=== PATIENT | female | born 1930 | race Caucasian/White ===

== ENCOUNTER → 2016-09-17 | Outpatient (CLI) | payer BC ==
[~2016-09-17] MED LIST: B-COTAB18 PO; CALC0.2510 PO; CALC0.5C PO; CHOL100010 PO; CHOL100027 PO; CINN1CAP2 PO; CYAN100020 PO; INSDGI SC; INSDGIPEN SC; INSU1INJ23 SC; INSU1INJ23 SQ; LEVE250T PO; LEVE500T13 PO; LEVO100T7 PO; LEVO125T5 PO; LEVO1TAB35 PO; NVLGI SC; NVLGIPEN SQ; OMEG10007 PO; PANT40TA PO; PRAV20TA PO; PRAV80TA2 PO; VITA1TAB4 PO; VITACAP PO
[2016-09-18 08:06] LABS: ESTIMATED AVERAGE GLUCOSE 174 mg/dl; HA1C FLAG Normal (Normal)
== END | disposition home or self-care (01) ==
LOC: C.LAB1850 15:40
PROVIDERS: ATTEND Internal Medicine Endocrinology, Diabetes & Metabolism
DX: M81.0 Age-related osteoporosis without current pathological fracture (principal); Z86.39 Personal history of other endocrine, nutritional and metabolic disease; E10.9 Type 1 diabetes mellitus without complications

== ENCOUNTER → 2016-09-21 | Outpatient (CLI) | payer BC | END | disposition home or self-care (01) | LOC: C.LAB1850 11:23 | PROVIDERS: ATTEND Internal Medicine Endocrinology, Diabetes & Metabolism | DX: Z86.39 Personal history of other endocrine, nutritional and metabolic disease (principal) ==

== ENCOUNTER → 2017-03-19 | Outpatient (CLI) | payer BC ==
[~2017-03-19] MED LIST changes: -B-COTAB18 PO; -CALC0.2510 PO; -CALC0.5C PO; +CALC0.5C17 PO; -CHOL100027 PO; -INSDGIPEN SC; -INSU1INJ23 SQ; -LEVE500T13 PO; -LEVO125T5 PO; -LEVO1TAB35 PO; -NVLGIPEN SQ; -PRAV80TA2 PO; -VITACAP PO
--- NOTE | 2017-03-19 15:20 | MAMMOGRAPHY REPORT ---
BILATERAL DIGITAL SCREENING MAMMOGRAM WITH CAD: 03/19/2017 CLINICAL HISTORY: Routine screening. Patient has no complaints. TECHNIQUE: Bilateral CC and MLO views were obtained. Current study was also evaluated with a Compute r Aided Detection (CAD) system. COMPARISON: Comparison is made to exams dated: 04/02/2016 ultrasound, 03/16/2016 mammogram, 03/14/20 15 mammogram, 03/31/2014 mammogram, 03/31/2014 ultrasound, and 03/11/2014 mammogram - [facility]. BREAST COMPOSITION: There are scattered areas of fibroglandular density in both breasts. FINDINGS: There is a dominant circumscribed 2 cm mass in the right upper outer quadrant, which was pr eviously documented to represent a simple cyst on ultrasound. There are a few benign rim calcificati ons bilaterally. Moderate to severe vascular calcification in the breasts. No suspicious mass, arch itectural distortion or cluster of suspicious microcalcifications is seen. IMPRESSION: ACR BI-RADS CATEGORY 1: NEGATIVE There is no mammographic evidence of malignancy. A 1 year screening mammogram is recommended. The pa tient will receive written notification of the results. Approximately 10% of breast cancers are not detected with mammography. A negative mammographic report should not delay biopsy if a clinically suggestive mass is present. Rut Marx M.D. ay/:03/19/2017 12:24:00 Saxophone Player: Lata Bell, [facility] letter sent: Normal 1/2 BI-RADS Code: ACR BI-RADS Category 1: Negative
== END | disposition home or self-care (01) ==
LOC: C.MAMM 10:33
PROVIDERS: ATTEND Internal Medicine
DX: Z12.31 Encounter for screening mammogram for malignant neoplasm of breast (principal)

== ENCOUNTER 2017-03-28 22:14 | Inpatient (IN) | payer BC, OTHER ==
[~2017-03-28] VITALS: Ht 152.4 cm; Wt 59.5 kg
[~2017-03-28 22:14] MED LIST changes: +CALC0.5C PO; -CALC0.5C17 PO
[2017-03-28] MEDS ORDERED: ALBUT/IPRATROP 3MG/0.5MG NEB 3 ML VIAL INH STA (22:51)
[2017-03-28] MEDS ORDERED: CALC0.2510 PO (23:22)
[2017-03-28] MEDS ORDERED: INSU1INJ23 SQ (23:23)
[2017-03-28] MEDS ORDERED: INSDGIPEN SC (23:23)
[2017-03-28] MEDS ORDERED: LEVE500T13 PO (23:24)
[2017-03-28] MEDS ORDERED: LEVO125T5 PO (23:24)
[2017-03-28] MEDS ORDERED: PRAV80TA2 PO (23:26)
[2017-03-28] MEDS ORDERED: NVLGIPEN SQ (23:29)
[2017-03-28] MEDS ORDERED: CHOL100027 PO (23:30)
[2017-03-28] MEDS ORDERED: B-COTAB18 PO (23:30)
[2017-03-28] MEDS ORDERED: VITACAP PO (23:30)
[2017-03-28 23:45] LABS: BASO % 0.2 %; BASO ABS # 0.02 K/uL (0-0.2); COMPLETE YES; EOS % 2.2 %; IG% 0.2 %; LYMPH % 14.7 %; LYMPH ABS # 1.28 K/uL (1.2-3.4); MEAN CELL VOLUME 91.3 fL (80-100); MEAN CORPUSCULAR HEMOGLOBIN 30.5 pg (25-34); MEAN CORPUSCULAR HGB CONC 33.4 g/dl (32-36); MEAN PLATELET VOLUME 9.3 fL (7.4-10.4); MONO % 8.6 %; NEUT % 74.1 %; PLATELET COUNT 274 K/uL (130-400); RED BLOOD COUNT 4.49 M/uL (4.2-5.4); WHITE BLOOD COUNT 8.68 K/uL (4.8-10.8)
[2017-03-28] MEDS ORDERED: SODIUM CHLORIDE 0.9% 500ML 500 ML IV STA (23:56)
[2017-03-28] MEDS ORDERED: LEVAQUIN 750MG / 150ML D5W IV STA (23:56)
[2017-03-29] VITALS (8 sets, daily range): BP systolic 118–146; BP diastolic 63–85; PULSE 88–107; TEMP 36.3–36.8; O2SAT 95–98; Ht 152.4 cm; Wt 59.5 kg
[2017-03-29 00:19] LABS: BLOOD UREA NITROGEN 22 mg/dl (7-18); GLUCOSE 29 mg/dl (70-99)
[2017-03-29 00:20] LABS: ALKALINE PHOSPHATASE 54 U/L (45-117); ALT/SGPT 18 U/L (12-78); AST/SGOT 18 U/L (15-37); BUN/CREATININE RATIO 15.7 (10-20); CALCIUM 9.1 mg/dl (8.5-10.1); CARBON DIOXIDE 31 mmol/L (21-32); CHLORIDE 101 mmol/L (98-107); CKMB/CK RATIO 1.5 (0-3.0); CREATININE 1.37 mg/dl (0.60-1.20); POTASSIUM 3.7 mmol/L (3.5-5.1); SODIUM 137 mmol/L (136-145)
--- NOTE | 2017-03-29 01:04 | EMERGENCY ROOM VISIT NOTE ---
History Report prepared by Jose J: Arline Robles Under the Supervision of: Dr. Ezra Morrison M.D. First contact with patient: 22:39 Chief Complaint: HYPOGLYCEMIA Stated Complaint: LOW SUGAR Nursing Triage Summary: patient from home. family gave 8units of insulin for a 469 BSG at home. patient became unresponsive at home family called EMS. EMS BSG was 12, gave D10. patient became A&O in route, BSG recheck was 156. BSG upon arrival was 91, patient alert and oriented, states she feels fuzzy but no other complaints History of Present Illness The patient is an 86 year old female who presents to the Emergency Room with complaints of persistent hypoglycemia starting MOBILE CRANE OPERATOR. The patient's daughter checked her blood sugar after dinner because she was confused. They found that it was 446. She gave her 4 units of NovoLog at that time. She checked her blood pressure 20 minutes later and found that it was 448. She continued to check her blood pressure and saw it rise to 458. She gave 4 more units of NovoLog. The patient seemed to be very confused and disoriented at this time. She started becoming SOB so they called EMS. EMS found that her blood sugar was 12. The patient has had a cough for several days. She denies any abdominal pain. Source of History: patient, family Onset: MOBILE CRANE OPERATOR Position: other (global) Symptom Intensity: 12 Quality: other (hypoglycemia) Timing: other (persistent) Associated Symptoms: + cough, No abdominal pain Review of Systems See HPI for pertinent positives & negatives. A total of 10 systems reviewed and were otherwise negative. Past Medical & Surgical Medical Problems: (1) Diabetes Family History Noncontributory secondary to age. Social History Smoking Status: Never Smoker Alcohol Use: none Drug Use: none Marital Status: single Occupation Status: retired Current/Historical Medications Scheduled B-Complex Vitamins (Vitamin B Complex), 1 TAB PO DAILY Calcitriol (Rocaltrol Cap), 0.25 MCG PO DAILY Cholecalciferol (Vitamin D 1000 Unit), 2,000 INTER.UNIT PO DAILY Cinnamon (Cinnamon), 500 MG PO QPM Cyanocobalamin (Vitamin B12), 1,000 MCG PO QPM Fish Oil ([place]-3), 1 GM PO QPM Insulin Aspart (Novolog Flexpen), 7 UNITS SQ AC Insulin Glargine (Lantus Solostar), 4 UNITS SC QAM Insulin Isophane (Human) (Humulin N Kwikpen), 6 UNITS SQ HS Levetiracetam (Keppra), 500 MG PO BID Levothyroxine Sodium (Levothyroxine Sodium), 1 TAB PO DAILY Pantoprazole (Protonix), 40 MG PO QAM Pravastatin Sodium (Pravastatin Sodium), 80 MG PO QAM Vitamin E (Vitamin E), 400 UNITS PO QAM Vitamin Mixture (Vitamin E Complete High G), 1 CAP PO DAILY Allergies Coded Allergies: Aspirin (Verified Allergy, Unknown, PCP TOOK PT OFF ASPIRIN PRODUCTS- ANEMIA, 03/28/17) Atorvastatin (Verified Allergy, Unknown, GI upset, 03/28/17) Iodine (Verified Allergy, Unknown, RASH ITCHING, 03/28/17) Penicillins (Verified Allergy, Unknown, SWELLING, 03/28/17) Rosuvastatin (Verified Allergy, Unknown, NAUSEA, 03/28/17) Simvastatin (Verified Allergy, Unknown, NAUSEA, 03/28/17) Sulfa Antibiotics (Verified Allergy, Unknown, UNKNOWN, 03/28/17) Telithromycin (Verified Allergy, Unknown, unknown, 03/28/17) Physical Exam Vital Signs Date Time Temp Pulse Resp B/P (MAP) Pulse Ox O2 Delivery O2 Flow Rate FiO2 03/29/17 00:28 84 18 137/68 97 Room Air 03/28/17 23:38 Room Air 03/28/17 22:29 36.4 77 18 171/80 96 Room Air Physical Exam GENERAL: Patient is a healthy-appearing well-nourished female HEAD: Normocephalic atraumatic EYES: Ocular movements intact pupils equal and react to light OROPHARYNX mucous membranes are moist no exudates present no erythema or edema present NECK: Supple no nuchal rigidity CHEST: Good equal expansion LUNGS: Slight wheezing in the left lobe. CARDIAC: Grade 2/6 systolic murmur. ABDOMEN: Soft nontender no guarding BACK: No CVA tenderness EXTREMITIES: No pain upon palpation normal muscle strength in all groups no clubbing cyanosis or edema NEURO: Patient is following commands and answering questions appropriately. Alert and oriented x3 Cranial Nerves 2-12 grossly intact Medical Decision & Procedures ER Provider Diagnostic Interpretation: X-ray results as stated below per interpretation by me: 1 view chest X-ray: Patient has what appears to be pneumonia in the right upper lobe. Chronic lung changes and severe kyphosis. Laboratory Results 03/28/17 23:15 Red Blood Count 4.49, Mean Corpuscular Volume 91.3, Mean Corpuscular Hemoglobin 30.5, Mean Corpuscular Hemoglobin Concent 33.4, Mean Platelet Volume 9.3, Neutrophils (%) (Auto) 74.1, Lymphocytes (%) (Auto) 14.7, Monocytes (%) (Auto) 8.6, Eosinophils (%) (Auto) 2.2, Basophils (%) (Auto) 0.2, Neutrophils # (Auto) 6.42, Lymphocytes # (Auto) 1.28, Monocytes # (Auto) 0.75, Eosinophils # (Auto) 0.19, Basophils # (Auto) 0.02 Test 03/28/17 23:15 White Blood Count 8.68 K/uL (4.8-10.8) Red Blood Count 4.49 M/uL (4.2-5.4) Hemoglobin 13.7 g/dL (12.0-16.0) Hematocrit 41.0 % (37-47) Mean Corpuscular Volume 91.3 fL (80-100) Mean Corpuscular Hemoglobin 30.5 pg (25-34) Mean Corpuscular Hemoglobin Concent 33.4 g/dl (32-36) Platelet Count 274 K/uL (130-400) Mean Platelet Volume 9.3 fL (7.4-10.4) Neutrophils (%) (Auto) 74.1 % Lymphocytes (%) (Auto) 14.7 % Monocytes (%) (Auto) 8.6 % Eosinophils (%) (Auto) 2.2 % Basophils (%) (Auto) 0.2 % Neutrophils # (Auto) 6.42 K/uL (1.4-6.5) Lymphocytes # (Auto) 1.28 K/uL (1.2-3.4) Monocytes # (Auto) 0.75 K/uL (0.11-0.59) Eosinophils # (Auto) 0.19 K/uL (0-0.5) Basophils # (Auto) 0.02 K/uL (0-0.2) RDW Standard Deviation 43.3 fL (36.4-46.3) RDW Coefficient of Variation 12.9 % (11.5-14.5) Immature Granulocyte % (Auto) 0.2 % Immature Granulocyte # (Auto) 0.02 K/uL (0.00-0.02) Total Bilirubin 0.3 mg/dl (0.2-1) Direct Bilirubin < 0.1 mg/dl (0-0.2) Aspartate Amino Transf (AST/SGOT) 18 U/L (15-37) Alanine Aminotransferase (ALT/SGPT) 18 U/L (12-78) Alkaline Phosphatase 54 U/L (45-117) Total Creatine Kinase 152 U/L (26-192) Creatine Kinase MB 2.3 ng/ml (0.5-3.6) Creatine Kinase MB Ratio 1.5 (0-3.0) Troponin I < 0.015 ng/ml (0-0.045) Total Protein 7.4 gm/dl (6.4-8.2) Albumin 3.3 gm/dl (3.4-5.0) Labs reviewed by ED physician. Medications Administered Medications (Trade) Dose Ordered Sig/Asif Route Start Time Stop Time Status Last Admin Dose Admin Albuterol/ Ipratropium (Duoneb) 3 ml NOW STAT INH 03/28/17 22:51 03/28/17 22:53 DC 03/28/17 22:51 3 ML Levofloxacin (Levaquin / D5W) 750 mg NOW STAT IV 03/28/17 23:56 03/28/17 23:57 DC 03/28/17 23:56 750 MG Sodium Chloride 500 ml @ 999 mls/hr Q31M STAT IV 03/28/17 23:56 03/29/17 00:26 DC 03/28/17 23:56 999 MLS/HR ED Course 2246: Past medical records reviewed. The patient was evaluated in room B9. A complete history and physical examination was performed. 2251: Duoneb 3 ml INH. 2356: NSS 500 ml @ 999 mls/hr IV, Levofloxacin 750 mg IV. 0025: Upon reexamination the patient is stable. I discussed results and treatment plan with the patient and her family. They verbalize agreement and understanding. The patient will be evaluated for further management. 0034: I discussed the patient's case with Dr. Capps, [facility] hospitalist. He has agreed to evaluate the patient for further management and care. Medical Decision Differential diagnosis: Etiologies such as viral syndrome, otitis, pharyngitis, pneumonia, influenza, meningitis, urinary tract infection, sepsis, bacteremia, as well as others were entertained. This is an 86-year-old female who presents emergency part complaining of hypoglycemia. The patient has pneumonia on chest x-ray. She was given breathing treatments in the emergency department and started on Levaquin. While in the emergency department and despite sugar continuously running the patient has continued to drop her blood sugar. She is required multiple doses of juice and D10. Medication Reconcilliation Current Medication List: was personally reviewed by me Blood Pressure Screening Patient's blood pressure: Elevated blood pressure Referred to hospitalist. Consults Time Called: 28 Consulting Physician: Dr. Capps [facility] hospitalist Returned Call: [phone] I discussed the patient's case with him. He has agreed to evaluate the patient for further management and care. Impression Primary Impression: Pneumonia Additional Impression: Hypoglycemia Scribe Attestation The scribe's documentation has been prepared under my direction and personally reviewed by me in its entirety. I confirm that the note above accurately reflects all work, treatment, procedures, and medical decision making performed by me. Departure Information Dispostion Being Evaluated By Hospitalist Referrals Thomas Muñoz M.D. (PCP) Patient Instructions My [facility] Problem Qualifiers Primary Impression: Pneumonia Pneumonia type: aspiration pneumonia Aspiration pneumonia type: unspecified Laterality: unspecified laterality Lung location: unspecified part of lung Qualified Codes: J69.0 - Pneumonitis due to inhalation of food and vomit
[2017-03-29] MEDS ORDERED: MAGNESIUM HYDROXIDE SUSP 30 ML UDC PO PRN (01:45)
[2017-03-29] MEDS ORDERED: ONDANSETRON INJ 2 MG/ML 2 ML VIAL IV PRN (01:45)
[2017-03-29] MEDS ORDERED: POLYETHYLENE (MIRALAX) 17 GM PACK PO PRN (01:45)
[2017-03-29] MEDS ORDERED: ALUMINUM/MAGNESIUM/SIMETH (MAALOX MAX) 30 ML UDC PO PRN (01:45)
[2017-03-29] MEDS ORDERED: ACETAMINOPHEN 325 MG TAB PO PRN (01:45)
--- NOTE | 2017-03-29 02:03 | History and Physical ---
History & Physical Date & Time of Service: Mar 29, 2017 at 01:53 Chief Complaint: Low Sugar Primary Care Physician: Thomas Muñoz M.D. History of Present Illness This is an 86 y/o F w/i h/o of T1DM, HLD, Hypothyroid who presents with hypoglycemia and shrotness of breath. She lives with her daughter who notes that she has been weak and short of breath for about a week but still relatively active. She has had a cough and Upper respiratory symptoms. However , today she found her to be weak and confused. She checked her blood sugar was found it to be 446. She gave her 4 units of novolog and checked again in 30 mins and said it was 460's. She continued to be disoriented. She called EMS and when they arrived they found her blood sugar to be 12. In the ED she was given IV fluids and blood sugar was 26. Was given orange juice. She follows with Dr. Peters Most recent reported A1c was 7.7 Past Medical/Surgical History Medical Problems: (1) Diabetes Status: Chronic Social History Smoking Status: Never Smoker Alcohol Use: none Drug Use: none Marital Status: single Housing status: lives with family Occupational Status: retired Immunizations History of Influenza Vaccine: Yes Influenza Vaccine Date: Apr 06, 2010 History of Tetanus Vaccine?: Yes History of Pneumococcal: Yes Pneumococcal Date: Apr 06, 2010 History of Hepatitis B Vaccine: No Multi-Drug Resistant Organisms History of MDRO: Yes Type of MDRO: MRSA Allergies Coded Allergies: Aspirin (Verified Allergy, Unknown, PCP TOOK PT OFF ASPIRIN PRODUCTS- ANEMIA, 03/28/17) Atorvastatin (Verified Allergy, Unknown, GI upset, 03/28/17) Iodine (Verified Allergy, Unknown, RASH ITCHING, 03/28/17) Penicillins (Verified Allergy, Unknown, SWELLING, 03/28/17) Rosuvastatin (Verified Allergy, Unknown, NAUSEA, 03/28/17) Simvastatin (Verified Allergy, Unknown, NAUSEA, 03/28/17) Sulfa Antibiotics (Verified Allergy, Unknown, UNKNOWN, 03/28/17) Telithromycin (Verified Allergy, Unknown, unknown, 03/28/17) Home Medications Scheduled B-Complex Vitamins (Vitamin B Complex), 1 TAB PO DAILY Calcitriol (Rocaltrol Cap), 0.25 MCG PO DAILY Cholecalciferol (Vitamin D 1000 Unit), 2,000 INTER.UNIT PO DAILY Cinnamon (Cinnamon), 500 MG PO QPM Cyanocobalamin (Vitamin B12), 1,000 MCG PO QPM Fish Oil ([place]-3), 1 GM PO QPM Insulin Aspart (Novolog Flexpen), 7 UNITS SQ AC Insulin Glargine (Lantus Solostar), 4 UNITS SC QAM Insulin Isophane (Human) (Humulin N Kwikpen), 6 UNITS SQ HS Levetiracetam (Keppra), 500 MG PO BID Levothyroxine Sodium (Levothyroxine Sodium), 1 TAB PO DAILY Pantoprazole (Protonix), 40 MG PO QAM Pravastatin Sodium (Pravastatin Sodium), 80 MG PO QAM Vitamin E (Vitamin E), 400 UNITS PO QAM Vitamin Mixture (Vitamin E Complete High G), 1 CAP PO DAILY Review of Systems Constitutional: + weakness, + fatigue, No fever, No chills, No sweats Respiratory: No cough, No sputum, No wheezing, No shortness of breath, No dyspnea on exertion, No dyspnea at rest Cardiovascular: No chest pain Abdomen: No pain, No nausea, No vomiting Genitourinary - Female: No dysuria, No urinary frequency, No urinary urgency Physical Exam Vital Signs Date Time Temp Pulse Resp B/P (MAP) Pulse Ox O2 Delivery O2 Flow Rate FiO2 03/29/17 00:28 84 18 137/68 97 Room Air 03/28/17 23:38 Room Air 03/28/17 22:29 36.4 77 18 171/80 96 Room Air General Appearance: no apparent distress, + pertinent finding (kyphotic) Eyes: PERRL, EOMI ENT: hearing grossly normal Neck: no adenopathy, thyroid normal, no JVD Respiratory/Chest: no respiratory distress, no accessory muscle use, + decreased breath sounds, + rhonchi Cardiovascular: regular rate, rhythm, no edema Abdomen/GI: normal bowel sounds, non tender, soft Back: no CVA tenderness Extremities/Musculoskelatal: no calf tenderness, no pedal edema, normal range of motion 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, alert, normal mood/affect, oriented x 3 Diagnostics Laboratory Results Results Past 24 Hours Test 03/28/17 22:23 03/28/17 23:15 Range/Units Bedside Glucose 91 70-90 mg/dl White Blood Count 8.68 4.8-10.8 K/uL Red Blood Count 4.49 4.2-5.4 M/uL Hemoglobin 13.7 12.0-16.0 g/dL Hematocrit 41.0 37-47 % Mean Corpuscular Volume 91.3 80-100 fL Mean Corpuscular Hemoglobin 30.5 25-34 pg Mean Corpuscular Hemoglobin Concent 33.4 32-36 g/dl Platelet Count 274 130-400 K/uL Mean Platelet Volume 9.3 7.4-10.4 fL Neutrophils (%) (Auto) 74.1 % Lymphocytes (%) (Auto) 14.7 % Monocytes (%) (Auto) 8.6 % Eosinophils (%) (Auto) 2.2 % Basophils (%) (Auto) 0.2 % Neutrophils # (Auto) 6.42 1.4-6.5 K/uL Lymphocytes # (Auto) 1.28 1.2-3.4 K/uL Monocytes # (Auto) 0.75 0.11-0.59 K/uL Eosinophils # (Auto) 0.19 0-0.5 K/uL Basophils # (Auto) 0.02 0-0.2 K/uL RDW Standard Deviation 43.3 36.4-46.3 fL RDW Coefficient of Variation 12.9 11.5-14.5 % Immature Granulocyte % (Auto) 0.2 % Immature Granulocyte # (Auto) 0.02 0.00-0.02 K/uL Sodium Level 137 136-145 mmol/L Potassium Level 3.7 3.5-5.1 mmol/L Chloride Level 101 98-107 mmol/L Carbon Dioxide Level 31 21-32 mmol/L Anion Gap 5.0 3-11 mmol/L Blood Urea Nitrogen 22 7-18 mg/dl Creatinine 1.37 0.60-1.20 mg/dl Est Creatinine Clear Calc Drug Dose 26.6 ml/min Estimated GFR () 40.9 Estimated GFR (Non- 35.3 BUN/Creatinine Ratio 15.7 10-20 Random Glucose 29 70-99 mg/dl Calcium Level 9.1 8.5-10.1 mg/dl Total Bilirubin 0.3 0.2-1 mg/dl Direct Bilirubin < 0.1 0-0.2 mg/dl Aspartate Amino Transf (AST/SGOT) 18 15-37 U/L Alanine Aminotransferase (ALT/SGPT) 18 12-78 U/L Alkaline Phosphatase 54 45-117 U/L Total Creatine Kinase 152 26-192 U/L Creatine Kinase MB 2.3 0.5-3.6 ng/ml Creatine Kinase MB Ratio 1.5 0-3.0 Troponin I < 0.015 0-0.045 ng/ml Total Protein 7.4 6.4-8.2 gm/dl Albumin 3.3 3.4-5.0 gm/dl Impression Assessment and Plan 86 y/o F with t1dm who presents with cough/shortness of breath and labile blood sugars (hypoglycemia in the ED) Cough/Shortness of breath 2/2 to CAP Levaquin IV Xray with Left sided infiltrate O2 as needed afebrile, no white count Hypo/hyper - glycemia likely 2/2 to infection q2h bsg ISS Lantus 4 units BID repeat bmp Lytes stable, monitor K and na JESUS ALBERTO Fluids given in the ED Recheck BMP If blood sugars remain low, give D5 Hypothyroid s/p partial thyroidectomy - continue synthroid h/o Seizures on Keppra Dvt Proph Lovenox Code: Full. Resident Physician Supervision Note: I was present with Dr. Atkins during the history and exam. I discussed the case with the resident and agree with the findings and plan as documented in the note. Any exceptions or clarifications are listed here: 86 y/o F Hx DM II, HTN, HPL - presenting with progressive SOB and initially hyper then hypoglycemia - likely R mid or upper infiltrate on XR - Hypoglycemia recurred 2 x in ER AAO x 3 S1,2 R Cannot hear any clear crackles NT, ND No CCE P: Placed on IVF with Glu - hold DM meds ABx , nebs , 02 for PNM Cont home HTN meds Mild JESUS ALBERTO on initial labs - IVF - repeat BMP AM Documented By: Renaldo Capps VTE Prophylaxis VTE Risk Assessment Done? Y/N: Yes Risk Level: Moderate
[2017-03-29] MEDS ORDERED: DEXTROSE 50% 50 ML SYR IV PRN (03:00)
[2017-03-29] MEDS ORDERED: GLUCOSE 40% GEL 15 GM TUBE PO PRN (03:00)
[2017-03-29] MEDS ORDERED: GLUCOSE 10 TABS/TUBE PO PRN (03:00)
[2017-03-29] MEDS ORDERED: GLUCAGON FOR INJ 1 MG VIAL SQ PRN (03:00)
[2017-03-29] MEDS: INSULIN ASPART 100 UNITS/ML 3 ML PEN SC SCH ×5 (03:34→21:00)
[2017-03-29 03:57] LABS: BUN/CREATININE RATIO 16.5 (10-20); CALCIUM 8.8 mg/dl (8.5-10.1); CREATININE 1.34 mg/dl (0.60-1.20); POTASSIUM 4.9 mmol/L (3.5-5.1)
[2017-03-29] MEDS ORDERED: ALBUT/IPRATROP 3MG/0.5MG NEB 3 ML VIAL INH PRN (04:45)
[2017-03-29] MEDS: LEVOTHYROXINE 125 MCG TAB PO SCH (06:12)
[2017-03-29 06:27] LABS: ESTIMATED AVERAGE GLUCOSE 160 mg/dl; HA1C FLAG Normal (Normal)
[2017-03-29] MEDS ORDERED: LEVOFLOXACIN CONSULT ACTIVE PRN (06:30)
[2017-03-29 06:46] LABS: PROTHROMBIN TIME (PATIENT) 10.6 SECONDS (9.0-12.0)
[2017-03-29 06:46] LABS: MANUAL MICROSCOPIC REQUIRED? NO; REVIEW REQ? NO; URINE APPEARANCE CLEAR (CLEAR); URINE BILIRUBIN NEG (NEG); URINE COLOR YELLOW; URINE NITRITE NEG (NEG); URINE PH 5.5 (4.5-7.5); URINE SPECIFIC GRAVITY 1.018 (1.000-1.030); UROBILINOGEN NEG (NEG); ZZUR CULT IF INDIC CLEAN CATCH NO
--- NOTE | 2017-03-29 06:58 | DIAGNOSTIC IMAGING REPORT ---
CHEST ONE VIEW PORTABLE HISTORY: 86 years-old Female Pt c/o LL wheezing acute wheezing COMPARISON: Chest radiograph 07/20/2015, chest CT 04/14/2015 TECHNIQUE: Portable upright AP view of the chest FINDINGS: Patient is rotated to the left. Cardiac silhouette is mildly enlarged. Enlargement of the pulmonary arteries suggests pulmonary arterial hypertension. Chronic reticular opacities are noted within a peripheral subpleural and bibasilar distribution throughout both lungs bilaterally. Superimposed hazy subsegmental left basilar opacities are noted with blunting the left costophrenic angle. Right lung apex is partially obscured by patient's chin. Hyperinflation Mild levoscoliosis of the spine. Moderate bone demineralization with multilevel advanced degenerative changes of the spine. IMPRESSION: 1. Hazy subsegmental left basilar opacities with blunting of the left costophrenic angle suspicious for atelectasis or pneumonia, possibly with trace effusion. 2. Hyperinflation with chronic subpleural and bibasilar reticular opacities, stable from comparison chest CT. 3. Suggested pulmonary arterial hypertension. The above report was generated using voice recognition software. It may contain grammatical, syntax or spelling errors. Electronically signed by: Abdiel Alexis M.D. 03/29/2017 6:56 AM Dictated Date/Time: 03/29/2017 6:53 AM
[2017-03-29] MEDS: LEVETIRACETAM 500 MG TAB PO SCH ×2 (07:48→21:21)
[2017-03-29] MEDS: PANTOprazole SOD 40 MG TAB PO SCH (07:48)
[2017-03-29] MEDS: PRAVASTATIN SOD 40 MG TAB PO SCH (07:48)
[2017-03-29] MEDS: ENOXAPARIN 30 MG/0.3 ML SYR SC SCH (07:49)
[2017-03-29] MEDS: CALCITRIOL 0.25 MCG CAP PO SCH (07:49)
[2017-03-29] MEDS: CHOLECALCIFEROL 1000 INTER.UNIT TAB PO SCH (07:49)
[2017-03-29] MEDS: VITAMIN B COMPLEX TAB PO SCH (07:49)
[2017-03-29] MEDS ORDERED: PNEUMOCOCCAL ADMINISTRATION CHARGE ONE (08:00)
[2017-03-29] MEDS ORDERED: PNEUMOCOCCAL POLYSACCHARIDES 25 MCG/0.5 ML VIAL/SYR IM. ONE (08:00)
[2017-03-29] MEDS ORDERED: PHARMACY GLYCEMIC MGMT CONSULT PRN (08:12)
[2017-03-29 08:44] LABS: BUN/CREATININE RATIO 16.6 (10-20); CALCIUM 8.9 mg/dl (8.5-10.1); CREATININE 1.22 mg/dl (0.60-1.20); POTASSIUM 5.1 mmol/L (3.5-5.1)
[2017-03-29] MEDS ORDERED: [UNRECOGNIZED DRUG - OTHER] PO SCH (09:00)
[2017-03-29] MEDS ORDERED: INSULIN GLARGINE SOLOSTAR 100 UNITS/ML 3 ML PEN SC SCH (09:00)
[2017-03-29] MEDS: INSULIN GLARGINE SOLOSTAR 100 UNITS/ML 3 ML PEN SC SCH (09:19)
--- NOTE | 2017-03-29 10:41 | Pharmacy Progress Note ---
Glycemic Control Intl Consult Date of Service Mar 29, 2017. Scope Glycemic Pharmacist consulted by Dr Borges on 03/29/17 for glycemic control and to write orders per [facility] inpatient glycemic control protocol Objective Weight (Kilograms): 57.500 Accuchecks BSG (last 24hrs): Test 03/28/17 22:23 03/28/17 23:15 03/29/17 00:13 03/29/17 00:32 Bedside Glucose 91 mg/dl (70-90) 58 mg/dl (70-90) 114 mg/dl (70-90) Random Glucose 29 mg/dl (70-99) Test 03/29/17 02:30 03/29/17 02:57 03/29/17 04:41 03/29/17 05:49 Bedside Glucose 260 mg/dl (70-90) 267 mg/dl (70-90) Random Glucose 279 mg/dl (70-99) 281 mg/dl (70-99) Test 03/29/17 07:36 03/29/17 09:22 Bedside Glucose 270 mg/dl (70-90) 279 mg/dl (70-90) Laboratory Data (last 24hrs) HbA1c Test 03/29/17 02:57 Hemoglobin A1c 7.2 % (4.5-5.6) H Recent Pertinent Medications Outpatient Anti-diabetic Regimen: Basal insulin * Lantus 4 units SQ AM * NPH 6 units SQ HS Bolus insulin * NovoLog 7 units SQ with meals + SSI (up to ~ 30 units/day) Assessment & Plan ASSESSMENT: * Mrs Juarez is a 86yo T1DM female who follows with [facility] end[facility]ology {Dr Peters} for brittle type 1 diabetes. Pt with marked jessica phenomenon and significant hypoglycemia unawareness and seizures overnight. Seizures have been well controlled with Keppra per endocrinology. * Pt was admitted with severe HYPOglycemia last evening. Evening dose of basal insulin (NPH 6 units) was held for LOW. However, pt not with rebound hyperglycemia. BSGs 279, 260, 270mg/dl since 0200. Hesitant to increase AM dose of basal insulin since AM basal insulin is 24hr Lantus and this may aggravate her overnight jessica phenomenon. Will instead "tighten" her novolog parameters for this AM and then reassess/"loosen" parameters based on today's BSG trend. * Saw patient this morning along with the health promotion educator. 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 Pt did not have any questions or concerns for pharmacy/health promotion educator PLAN FOR INPATIENT GLYCEMIC CONTROL: * Basal insulin: Continue outpatient regimen * Lantus 4 units SQ daily in AM * NPH 6 units SQ HS * Bolus insulin * NovoLog per scale ACHS or Q6hrs while NPO * Goal Range: Low 130 mg/dL - High 160 mg/dL {elevated range based on age and hypoglycemia unawareness} * Correction Factor: 30 mg/dL/unit * Nutritional / Prandial insulin per carb ratio of 1 unit per 9 grams CHO consumed PLAN FOR DISCHARGE: * Per A1c (7.2% on 03/29/17) patient is extremely well controlled and follows with [facility]ocr[facility]ology. * No changes needed to outpatient regimen at this time. Pt may need education on bolusing NovoLog for hyperglycemia since she bolus x 2 at home for hypoglycemia which caused a low of 29mg/dl on admission. * May consider a less stringent A1c goal based on age & co-morbidities (hypo unawareness, seizure). * Please note that the plan above was derived based on current level of insulin resistance and hospital stress. These recommendations are appropriate for inpatient admission only. Plan of care upon discharge will need to be reassessed to avoid potential outpatient hypo/hyperglycemia. Thank you.
[2017-03-29 16:37] LABS: BUN/CREATININE RATIO 15.7 (10-20); CALCIUM 9.4 mg/dl (8.5-10.1); CREATININE 1.42 mg/dl (0.60-1.20); POTASSIUM 4.6 mmol/L (3.5-5.1)
--- NOTE | 2017-03-29 19:32 | Family Medicine Progress Note ---
Progress Note Date of Service Mar 29, 2017. Subjective Pt evaluation today including: conversation w/ patient, physical exam, chart review, lab review, review of studies Pain: denies PO Intake: adequate Voiding: no voiding problems 86 F pt reports that her daughter called EMS yesterday when while sitting together in their home, the daughter found that her mother was not responding to her in conversation. She remained upright in her chair but was "out of it". Daughter reportedly checked patient's blood sugar and found that it was very high, and so gave her insulin, but when she rechecked it the sugar had gone very low. Pt does not remember this, but says that her daughter told her that she then called EMS to bring her in. Pt wonders aloud if this was another seizure, which she says she has developed in the past when her sugars were more labile. She says that before this admission she had been feeling cold-like symptoms for about a week prior for which she'd been taking cold medicine to little or no benefit. Pt reports that she is a type 1 diabetic, and developed it after her about 15 years ago. She regularly sees her PCP and her rice cleaning machine tender for this, the last time she saw both of them in office was 6 months ago. Pt states that in her house lives her daughter and son in law, and their child who is 2 years old, and who had been sick last week as well. Today's interview pt is sitting upright in the chair, is conversational and alert and smiling. Constitutional: No fever, No chills Respiratory: + cough, No sputum, No wheezing, No shortness of breath Cardiovascular: No chest pain, No edema Abdomen: No pain, No nausea, No vomiting, No diarrhea, No constipation Medications Current Inpatient Medications Medications (Trade) Dose Ordered Sig/Asif Route Start Time Stop Time Status Last Admin Dose Admin Enoxaparin Sodium (Lovenox Inj) 30 mg Q24H SC 03/29/17 09:00 04/28/17 08:59 03/29/17 07:49 30 MG Acetaminophen (Tylenol Tab) 650 mg Q4H PRN PO 03/29/17 01:45 04/28/17 01:44 Al Hydrox/Mg Hydrox/Simethicone (Maalox Max Susp) 15 ml Q4H PRN PO 03/29/17 01:45 04/28/17 01:44 Magnesium Hydroxide (Milk Of Magnesia Susp) 30 ml Q12H PRN PO 03/29/17 01:45 04/28/17 01:44 Ondansetron HCl (Zofran Inj) 4 mg Q6H PRN IV 03/29/17 01:45 04/28/17 01:44 Polyethylene (Miralax Powder Packet) 17 gm DAILY PRN PO 03/29/17 01:45 04/28/17 01:44 Calcitriol (Rocaltrol Cap) 0.25 mcg DAILY PO 03/29/17 09:00 04/28/17 08:59 03/29/17 07:49 0.25 MCG Cholecalciferol (Vitamin D Tab) 2,000 inter.unit DAILY PO 03/29/17 09:00 04/28/17 08:59 03/29/17 07:49 2,000 INTER.UNIT Fish Oil ([place]-3 (Purified Fish Oil) Cap) 1 gm QPM PO 03/29/17 21:00 04/28/17 20:59 Levetiracetam (Keppra Tab) 500 mg BID PO 03/29/17 09:00 04/28/17 08:59 03/29/17 07:48 500 MG Levothyroxine Sodium (Synthroid Tab) 125 mcg DAILYBB PO 03/29/17 06:00 04/28/17 05:59 03/29/17 06:12 125 MCG Pantoprazole Sodium (Protonix Tab) 40 mg QAM PO 03/29/17 09:00 04/28/17 08:59 03/29/17 07:48 40 MG Vitamin B Complex (Vitamin B Complex) 1 tab DAILY PO 03/29/17 09:00 04/28/17 08:59 03/29/17 07:49 1 TAB Pravastatin Sodium (Pravachol Tab) 80 mg QAM PO 03/29/17 09:00 04/28/17 08:59 03/29/17 07:48 80 MG Insulin Aspart (novoLOG ASPART) SLIDING SCALE G... ACHS SC 03/29/17 03:00 04/28/17 02:59 03/29/17 17:25 6 UNITS Glucose (Glucose 40% Gel) 15-30 GRAMS 15 GRAMS... UD PRN PO 03/29/17 03:00 04/28/17 02:59 Glucose (Glucose Chew Tab) 4-8 Tablets 4 Tabl... UD PRN PO 03/29/17 03:00 04/28/17 02:59 Dextrose (Dextrose 50% 50ML Syringe) 25-50ML OF 50% DW IV FOR... UD PRN IV 03/29/17 03:00 04/28/17 02:59 Glucagon (Glucagon Inj) 1 mg UD PRN SQ 03/29/17 03:00 04/28/17 02:59 Levofloxacin 750 mg/Prmx 150 ml @ 100 mls/hr Q48H IV 03/30/17 22:00 04/06/17 21:59 Albuterol/ Ipratropium (Duoneb) 3 ml Q4R PRN INH 03/29/17 04:45 04/28/17 04:44 Levofloxacin (Consult) 1 ea UD PRN N/A 03/29/17 06:30 04/28/17 06:29 Miscellaneous Information (Consult Glycemic Management Pharmacy) 1 ea UD PRN N/A 03/29/17 08:12 04/28/17 08:11 Insulin Glargine (Lantus Solostar Pen) 4 units QAM SC 03/29/17 09:00 04/28/17 08:59 03/29/17 09:19 4 UNITS Insulin Human NPH (novoLIN-N NPH) 6 units HS SC 03/29/17 21:00 04/28/17 20:59 Objective Physical Exam General Appearance: WD/WN, no apparent distress Eyes: normal inspection, EOMI Respiratory/Chest: chest non-tender, lungs clear, normal breath sounds, no respiratory distress, no accessory muscle use Cardiovascular: regular rate, rhythm, no edema, no gallop, no JVD, no murmur Abdomen: normal bowel sounds, non tender, soft Extremities: normal range of motion, non-tender, normal inspection, no pedal edema Neurologic/Psychiatric: alert, normal mood/affect, oriented x 3 Skin: normal color, warm/dry, no rash Laboratory Results 03/28/17 23:15 Red Blood Count 4.49, Mean Corpuscular Volume 91.3, Mean Corpuscular Hemoglobin 30.5, Mean Corpuscular Hemoglobin Concent 33.4, Mean Platelet Volume 9.3, Neutrophils (%) (Auto) 74.1, Lymphocytes (%) (Auto) 14.7, Monocytes (%) (Auto) 8.6, Eosinophils (%) (Auto) 2.2, Basophils (%) (Auto) 0.2, Neutrophils # (Auto) 6.42, Lymphocytes # (Auto) 1.28, Monocytes # (Auto) 0.75, Eosinophils # (Auto) 0.19, Basophils # (Auto) 0.02 03/29/17 16:07 Test 03/28/17 23:15 03/29/17 00:00 03/29/17 02:57 03/29/17 05:49 White Blood Count 8.68 K/uL (4.8-10.8) Red Blood Count 4.49 M/uL (4.2-5.4) Hemoglobin 13.7 g/dL (12.0-16.0) Hematocrit 41.0 % (37-47) Mean Corpuscular Volume 91.3 fL (80-100) Mean Corpuscular Hemoglobin 30.5 pg (25-34) Mean Corpuscular Hemoglobin Concent 33.4 g/dl (32-36) Platelet Count 274 K/uL (130-400) Mean Platelet Volume 9.3 fL (7.4-10.4) Neutrophils (%) (Auto) 74.1 % Lymphocytes (%) (Auto) 14.7 % Monocytes (%) (Auto) 8.6 % Eosinophils (%) (Auto) 2.2 % Basophils (%) (Auto) 0.2 % Neutrophils # (Auto) 6.42 K/uL (1.4-6.5) Lymphocytes # (Auto) 1.28 K/uL (1.2-3.4) Monocytes # (Auto) 0.75 K/uL (0.11-0.59) Eosinophils # (Auto) 0.19 K/uL (0-0.5) Basophils # (Auto) 0.02 K/uL (0-0.2) RDW Standard Deviation 43.3 fL (36.4-46.3) RDW Coefficient of Variation 12.9 % (11.5-14.5) Immature Granulocyte % (Auto) 0.2 % Immature Granulocyte # (Auto) 0.02 K/uL (0.00-0.02) Total Bilirubin 0.3 mg/dl (0.2-1) Direct Bilirubin < 0.1 mg/dl (0-0.2) Aspartate Amino Transf (AST/SGOT) 18 U/L (15-37) Alanine Aminotransferase (ALT/SGPT) 18 U/L (12-78) Alkaline Phosphatase 54 U/L (45-117) Total Creatine Kinase 152 U/L (26-192) Creatine Kinase MB 2.3 ng/ml (0.5-3.6) Creatine Kinase MB Ratio 1.5 (0-3.0) Troponin I < 0.015 ng/ml (0-0.045) Total Protein 7.4 gm/dl (6.4-8.2) Albumin 3.3 gm/dl (3.4-5.0) Urine Color YELLOW Urine Appearance CLEAR (CLEAR) Urine pH 5.5 (4.5-7.5) Urine Specific [place] 1.018 (1.000-1.030) Urine Protein NEG (NEG) Urine Glucose (UA) 3+ (NEG) Urine Ketones 1+ (NEG) Urine Occult Blood NEG (NEG) Urine Nitrite NEG (NEG) Urine Bilirubin NEG (NEG) Urine Urobilinogen NEG (NEG) Urine Leukocyte Esterase NEG (NEG) Estimated Average Glucose 160 mg/dl Hemoglobin A1c 7.2 % (4.5-5.6) Prothrombin Time 10.6 SECONDS (9.0-12.0) Prothromb Time International Ratio 1.0 (0.9-1.1) Test 03/29/17 15:53 03/29/17 16:07 Bedside Glucose 198 mg/dl (70-90) Anion Gap 8.0 mmol/L (3-11) Est Creatinine Clear Calc Drug Dose 23.4 ml/min Estimated GFR () 39.2 Estimated GFR (Non- 33.8 BUN/Creatinine Ratio 15.7 (10-20) Calcium Level 9.4 mg/dl (8.5-10.1) Assessment and Plan 86 F here for symptomatic hyper and hypoglyemia, and pneumonia Labile blood sugars/DM Type 1 - has h/o seizures with onset of diabetes in her 70s. Continue Keppra - ordered glycemic consult given delicate status of blood sugars in concert with seizure threshold and mental status - BSG 29-267.Checks q 2 hours. Last: 211 at 1600. - BSG goal 150-250 CAP/hx of pulmonary hypertension (2010) -Clinically much improved, pulse ox stable. Is not on Home O2, currently 98 on RA. -IV Levaquin, renally dosed q48 -Switch to Levaquin 750 mg PO tomorrow, likely discharge tomorrow -due to renal dosing, pt should get total of 4 doses (given Q48H). 03/30 will be second dose. CKD stage 3B renally dosed medications HLD continue pravastatin 80 Hypothyroid continue Levothyroxine 125 PPX: lovenox 30 q24, PPI Code: FULL Dispo: likely home tomorrow. Continued [facility] stay due to: multiple IV medications needed Discharge planning: home Resident Tracking Resident Involvement: Resident Care Provided Care Provided: Adult Hospital Medicine
[2017-03-29] MEDS ORDERED: INSULIN HUMAN NPH SC SCH (21:00)
[2017-03-29] MEDS ORDERED: OMEGA-3 (PURIFIED FISH OIL) 1 GM CAP PO SCH (21:00)
[2017-03-30 03:12] VITALS: BP 127/70; PULSE 94; TEMP 36.8; O2SAT 92
[2017-03-30] MEDS: LEVOTHYROXINE 125 MCG TAB PO SCH (05:31)
[2017-03-30 06:31] LABS: HEMATOCRIT 35.8 % (37-47); MEAN CELL VOLUME 90.9 fL (80-100); MEAN CORPUSCULAR HEMOGLOBIN 30.5 pg (25-34); MEAN CORPUSCULAR HGB CONC 33.5 g/dl (32-36); MEAN PLATELET VOLUME 9.5 fL (7.4-10.4); PLATELET COUNT 256 K/uL (130-400); RED BLOOD COUNT 3.94 M/uL (4.2-5.4); WHITE BLOOD COUNT 5.91 K/uL (4.8-10.8)
[2017-03-30 07:01] LABS: BUN/CREATININE RATIO 18.2 (10-20); CALCIUM 8.7 mg/dl (8.5-10.1); CREATININE 1.28 mg/dl (0.60-1.20); POTASSIUM 4.2 mmol/L (3.5-5.1)
[2017-03-30 07:46] VITALS: BP 155/89; PULSE 79; TEMP 36.7; O2SAT 95
[2017-03-30] MEDS: LEVETIRACETAM 500 MG TAB PO SCH (08:53)
[2017-03-30] MEDS: CALCITRIOL 0.25 MCG CAP PO SCH (08:53)
[2017-03-30] MEDS: PRAVASTATIN SOD 40 MG TAB PO SCH (08:53)
[2017-03-30] MEDS: PANTOprazole SOD 40 MG TAB PO SCH (08:53)
[2017-03-30] MEDS: CHOLECALCIFEROL 1000 INTER.UNIT TAB PO SCH (08:54)
[2017-03-30] MEDS: ENOXAPARIN 30 MG/0.3 ML SYR SC SCH (08:54)
[2017-03-30] MEDS: VITAMIN B COMPLEX TAB PO SCH (08:54)
[2017-03-30] MEDS: INSULIN ASPART 100 UNITS/ML 3 ML PEN SC SCH ×2 (08:57→12:48)
[2017-03-30] MEDS: INSULIN GLARGINE SOLOSTAR 100 UNITS/ML 3 ML PEN SC SCH (08:58)
[2017-03-30] MEDS ORDERED: LEVOFLOXACIN 750 MG TAB PO SCH (11:00)
[2017-03-30 11:48] VITALS: BP 131/77; PULSE 87; TEMP 36.7; O2SAT 95
[2017-03-30] MEDS ORDERED: LEVO1TAB35 PO ×2 (15:15→15:35)
--- NOTE | 2017-03-30 15:32 | Discharge Instructions ---
Discharge Instructions Date of Service Mar 30, 2017. Admission Reason for Admission: Hypoglycemia,Pneumonia Discharge Discharge Diagnosis / Problem: pneumonia Discharge Goals Goal(s): Improve function, Increase independence Activity Recommendations Activity Limitations: resume your previous activity . Instructions / Follow-Up Instructions / Follow-Up You have Labile blood sugars/DM Type 1. We held your Lantus, but you will continue you Insulin sliding scales as you did prior to hospitalization. Please follow up with your Gut Cleaner especially if blood glucose is greater than 400 less than 60. You also had a pneumonia. We are treating it with Levaquin. Please take it every other for 3 more doses. Please take it as instructed. You have chronic kidney disease stage three, please follow up with your PCP regarding this. Please also see your guard sergeant and primary care doctor within the next 7 days. Please follow up sooner with your primary care doctor if you experience sever symptoms of hypoglycemia, other severe symptoms;such as chest pain, SOB, fevers. Current Hospital Diet Patient's current hospital diet: Diabetes Type 1 Diet Discharge Diet Recommended Diet: Diabetes Type 1 Diet Pending Studies Studies pending at discharge: no Laboratory Results Hemoglobin A1c Test 03/29/17 02:57 Range/Units Estimated Average Glucose 160 mg/dl Hemoglobin A1c 7.2 H 4.5-5.6 % Medical Emergencies . Who to Call and When: Medical Emergencies: If at any time you feel your situation is an emergency, please call 911 immediately. . Non-Emergent Contact Non-Emergency issues call your: Primary Care Provider . . "Provider Documentation" section prepared by Greg Borges. . VTE Core Measure Inpt VTE Proph given/why not?: Enoxaparin (Lovenox)SQ
[2017-03-30 15:43] VITALS: BP 145/84; PULSE 86; TEMP 37.1; O2SAT 96
[2017-03-30 15:45] VITALS: BP 145/84; PULSE 86; TEMP 37.1; O2SAT 96
--- NOTE | 2017-03-30 20:43 | Discharge Summary ---
Discharge Summary Date of Service Mar 30, 2017. Discharge Summary Admission Date: Mar 29, 2017 at 01:49 Discharge Date: Mar 30, 2017 Principal Diagnosis: Pneumonia Problems/Secondary Diagnoses: Hypoglycemia Immunizations: Have You Had Influenza Vaccine: Yes Influenza Vaccine Date: Apr 06, 2010 History of Tetanus Vaccine?: Yes History of Pneumococcal: Yes Pneumococcal Date: Apr 06, 2010 History of Hepatitis B Vaccine: No Medication Reconciliation New Medications: Levofloxacin (Levaquin) 750 Mg Tab 750 MG PO Q2D for 3 Days, #3 TAB Continued Medications: B-Complex Vitamins (Vitamin B Complex) 1 Tab Tab 1 TAB PO DAILY Calcitriol (Rocaltrol Cap) 0.25 Mcg Cap 0.25 MCG PO DAILY, CAP Cholecalciferol (Vitamin D 1000 Unit) 1,000 Unit Cap 2000 INTER.UNIT PO DAILY, CAP Cinnamon (Cinnamon) 500 Mg Cap 500 MG PO QPM Cyanocobalamin (Vitamin B12) 1,000 Mcg Tab 1000 MCG PO QPM Fish Oil ([place]-3) 1 Ea Cap 1 GM PO QPM Insulin Aspart (Novolog Flexpen) 100 Units/Ml Inj 7 UNITS SQ AC as per sliding scale approx 30 units daily - 7 plus sliding scale Insulin Isophane (Human) (Humulin N Kwikpen) 100 Unit/Ml Inj 6 UNITS SQ HS Levetiracetam (Keppra) 500 Mg Tab 500 MG PO BID Levothyroxine Sodium (Levothyroxine Sodium) 125 Mcg Tab 1 TAB PO DAILY, 3 Refills Pantoprazole (Protonix) 40 Mg Tab 40 MG PO QAM, 0 Refills Pravastatin Sodium (Pravastatin Sodium) 80 Mg Tab 80 MG PO QAM, 3 Refills Vitamin E (Vitamin E) 400 Unit Tab 400 UNITS PO QAM Vitamin Mixture (Vitamin E Complete High G) 1 Cap Cap 1 CAP PO DAILY Discontinued Medications: Insulin Glargine (Lantus Solostar) 100 Unit/Ml Inj 4 UNITS SC QAM, PEN Discharge Exam Review of Systems: Constitutional: No fever, No chills, No sweats Respiratory: No cough, No sputum, No wheezing Cardiovascular: No chest pain, No orthopnea Abdomen: No pain, No nausea, No vomiting Genitourinary - Female: No dysuria, No urinary frequency, No urinary incontinence Physical Exam: General Appearance: WD/WN, no apparent distress Eyes: normal inspection, EOMI Respiratory/Chest: lungs clear, normal breath sounds, no respiratory distress, no accessory muscle use Cardiovascular: regular rate, rhythm, no edema, no gallop, no JVD Abdomen / GI: normal bowel sounds, non tender, soft Extremities: normal inspection, no pedal edema Neurologic/Psychiatric: alert, normal mood/affect, oriented x 3 Skin: normal color, warm/dry, no rash Hospital Course Reason for admission: Ms. Juarez is an 86 year old female admitted here for symptomatic hyper and then hypoglyemia, and pneumonia Summary: 03/28/17-03/30/17 Patient reports that her daughter called EMS on day of admission when while sitting together in their home, the daughter found that her mother was not responding to her in conversation. She remained upright in her chair but was "out of it". Daughter reportedly checked patient's blood sugar and found that it was very high, and so gave her insulin, but when she rechecked it the sugar had gone very low. Pt does not remember this, but says that her daughter told her that she then called EMS to bring her in. Pt wonders aloud if this was another seizure, which she says she has developed in the past when her sugars were labile. She says that before this admission she had been feeling cold-like symptoms for about a week prior for which she'd been taking cold medicine to little or no benefit. Pt reports that she is a type 1 diabetic, and developed it about 15 years ago. She regularly sees her PCP and her metal hanging supervisor for this, the last time she saw both of them in office was 6 months ago. Pt states that in her house lives her daughter and son in law, and their child who is 2 years old, and who had been sick last week as well. For patient's pneumonia we treated with IV Levaquin, and she is going home on PO Levaquin. For patient's labile blood sugars, pharmacological glycemic consult was ordered and it was managed with goal of 150-250. No new medications were added for her diabetes management - likely the infection caused her blood sugars to be more vulnerable to insulin management, causing hypoglycemia. For more details, please see below. We appreciate the opportunity to be a part of Ms. Juarez's care. Labile blood sugars/DM Type 1 - has h/o seizures with onset of diabetes in her 70s. Continue Keppra - ordered glycemic consult given delicate status of blood sugars in concert with seizure threshold and mental status - BSG 29-267.Checks q 2 hours. - BSG goal 150-250 CAP/hx of pulmonary hypertension (2010) -Clinically much improved, pulse ox stable. Is not on Home O2, currently 98 on RA. -IV Levaquin, renally dosed q48 -Switch to Levaquin 750 mg PO. Due to need for renal dosing, pt will get total of 4 doses (given Q48H) over 7 days. CKD stage 3B renally dosed medications HLD continue pravastatin 80 Hypothyroid continue Levothyroxine 125 Total Time Spent: Greater than 30 minutes This includes examination of the patient, discharge planning, medication reconciliation, and communication with other providers. Discharge Instructions Please refer to the electronic Patient Visit Report (Discharge Instructions) for additional information. Additional Copies To Thomas Muñoz M.D. Resident Tracking Resident Involvement: Resident Care Provided Care Provided: Adult [facility] Medicine
[2017-03-30] MEDS ORDERED: LEVOFLOXACIN / D5W 750 MG in PREMIXED IN D5W 150 ML IV SCH (22:00)
== END 2017-03-30 16:00 | disposition home or self-care (01) | DRG 637 ==
LOC: EDBD 22:14 → C.EDB 22:15 → UNDOADMIN 03-29 01:49 → C.2T 03-29 01:49 → EDBEDREQ 03-29 01:54 → ENRESERV 03-29 01:58
PROVIDERS: ADMIT Internal Medicine; ATTEND Hospitalist
DX: E10.649 Type 1 diabetes mellitus with hypoglycemia without coma (principal); J18.9 Pneumonia, unspecified organism; N17.9 Acute kidney failure, unspecified; I10 Essential (primary) hypertension; E78.5 Hyperlipidemia, unspecified; E10.65 Type 1 diabetes mellitus with hyperglycemia; E56.9 Vitamin deficiency, unspecified; I27.20 Pulmonary hypertension, unspecified; N18.3 Chronic kidney disease, stage 3 (moderate); E03.9 Hypothyroidism, unspecified

== ENCOUNTER → 2017-05-06 | Outpatient (CLI) | payer BC ==
[~2017-05-06] MED LIST changes: +B-COTAB18 PO; +CALC0.2510 PO; -CALC0.5C PO; -CHOL100010 PO; +CHOL100027 PO; -INSDGI SC; -INSU1INJ23 SC; +INSU1INJ23 SQ; -LEVE250T PO; +LEVE500T13 PO; -LEVO100T7 PO; +LEVO125T5 PO; +LEVO1TAB35 PO; -NVLGI SC; +NVLGIPEN SQ; -PRAV20TA PO; +PRAV80TA2 PO; +VITACAP PO
--- NOTE | 2017-05-06 12:08 | DIAGNOSTIC IMAGING REPORT ---
CHEST 2 VIEWS ROUTINE CLINICAL HISTORY: PNEUMONIA dyspnea COMPARISON STUDY: 1026 and 17 FINDINGS: Chronic interstitial prominence bilaterally. Left base is now considered improved in aeration. Mild stable cardia megaly. Tortuosity thoracic aorta. IMPRESSION: Chronic interstitial change. No acute process on the current exam. Improved study from the prior exam. The above report was generated using voice recognition software. It may contain grammatical, syntax or spelling errors. Electronically signed by: Adan Warner M.D. 05/06/2017 12:07 PM Dictated Date/Time: 05/06/2017 12:06 PM
== END | disposition home or self-care (01) ==
LOC: C.RADBC 11:43
PROVIDERS: ATTEND Internal Medicine
DX: J18.9 Pneumonia, unspecified organism (principal)

== ENCOUNTER → 2017-06-05 | Outpatient (CLI) | payer BC ==
--- NOTE | 2017-06-05 13:58 | DIAGNOSTIC IMAGING REPORT ---
CHEST 2 VIEWS ROUTINE CLINICAL HISTORY: J20.8 Acute bacterial [id number] COMPARISON STUDY: 05/06/2017 FINDINGS: The cardiac and mediastinal contours remain stable. There is persistent diffuse interstitial thickening with a subpleural distribution. There is equivocal left lower lobe bronchial wall thickening. There is no lobar consolidation.[ IMPRESSION: 1. No evidence of acute parenchymal consolidation 2. Persistent chronic interstitial lung disease with a subpleural distribution Electronically signed by: Hunter Francis M.D. 06/05/2017 1:56 PM Dictated Date/Time: 06/05/2017 1:55 PM
[2017-06-05 19:41] LABS: ALBUMIN 2.7 gm/dl (3.4-5.0); ALKALINE PHOSPHATASE 81 U/L (45-117); ALT/SGPT 16 U/L (12-78); AST/SGOT 14 U/L (15-37); BLOOD UREA NITROGEN 16 mg/dl (7-18); CARBON DIOXIDE 29 mmol/L (21-32); CHOLESTEROL 157 mg/dl (0-200); CREATININE 1.31 mg/dl (0.60-1.20); GLUCOSE 380 mg/dl (70-99); LDL CHOLESTEROL CALCULATED 76 mg/dl; POTASSIUM 4.2 mmol/L (3.5-5.1); SODIUM 129 mmol/L (136-145); TOTAL PROTEIN 7.7 gm/dl (6.4-8.2)
[2017-06-06 06:22] LABS: HEMOGLOBIN A1C 7.5 % (4.5-5.6)
== END | disposition home or self-care (01) ==
LOC: C.RADBC 13:17
PROVIDERS: ATTEND Internal Medicine
DX: J84.9 Interstitial pulmonary disease, unspecified (principal); E03.9 Hypothyroidism, unspecified; G40.909 Epilepsy, unspecified, not intractable, without status epilepticus; Z86.39 Personal history of other endocrine, nutritional and metabolic disease; M81.0 Age-related osteoporosis without current pathological fracture; E78.5 Hyperlipidemia, unspecified; S22.000A Wedge compression fracture of unspecified thoracic vertebra, initial encounter for closed fracture; X58.XXXA Exposure to other specified factors, initial encounter; E10.649 Type 1 diabetes mellitus with hypoglycemia without coma; E06.3 Autoimmune thyroiditis; E55.9 Vitamin D deficiency, unspecified; J20.8 Acute bronchitis due to other specified organisms

== ENCOUNTER → 2017-09-20 | Outpatient (CLI) | payer BC ==
[2017-09-20 12:44] LABS: ALBUMIN 3.2 gm/dl (3.4-5.0); ALT/SGPT 19 U/L (12-78); AST/SGOT 20 U/L (15-37); BLOOD UREA NITROGEN 16 mg/dl (7-18); CALCIUM 9.3 mg/dl (8.5-10.1); CARBON DIOXIDE 33 mmol/L (21-32); CREATININE 1.27 mg/dl (0.60-1.20); GLUCOSE 220 mg/dl (70-99); POTASSIUM 4.4 mmol/L (3.5-5.1); SODIUM 135 mmol/L (136-145)
[2017-09-20 12:47] LABS: ALKALINE PHOSPHATASE 58 U/L (45-117); TOTAL PROTEIN 7.3 gm/dl (6.4-8.2)
[2017-09-20 12:51] LABS: HEMOGLOBIN A1C 7.2 % (4.5-5.6)
== END ==
LOC: C.LAB1850 11:03
PROVIDERS: ATTEND Internal Medicine Endocrinology, Diabetes & Metabolism
DX: E55.9 Vitamin D deficiency, unspecified (principal); E10.9 Type 1 diabetes mellitus without complications